=== PATIENT | female | born 1990 | race Caucasian/White ===

== ENCOUNTER 2016-06-13 13:12 | Emergency (ER) | payer SELFPAY ==
[2016-06-13 13:16] VITALS: RESP 16; TEMP 97.7
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
[2016-06-13 13:48] VITALS: BP 115/78; PULSE 80; O2SAT 97
== END 2016-06-13 13:47 | disposition home or self-care (01) ==
DX: T22.10XA Burn of first degree of shoulder and upper limb, except wrist and hand, unspecified site, initial encounter (principal); F17.200 Nicotine dependence, unspecified, uncomplicated; W01.198A Fall on same level from slipping, tripping and stumbling with subsequent striking against other object, initial encounter

== ENCOUNTER 2016-06-26 13:46 | Emergency (ER) | payer SELFPAY ==
[2016-06-26 14:22] LABS: COLOR YELLOW; LEUKOCYTE ESTERASE,URINE NEGATIVE (NEGATIVE); NITRITE,URINE NEGATIVE (NEGATIVE)
[2016-06-26 14:31] LABS: BACTERIA TRACE /hpf (NONE SEEN); MUCUS TRACE /lpf (NONE-1+)
--- NOTE | 2016-06-26 15:47 | EDPHY ---
H & P Time Seen by Provider: 06/26/16 15:47 HPI/ROS: CHIEF COMPLAINT: Right flank pain HISTORY OF PRESENT ILLNESS: This 26-year-old woman presents with right flank pain since yesterday. She says it was mild yesterday and then today says is increased and severe radiating to her right lower quadrant. It is associated with some dysuria and urinary frequency. It feels identical to previous kidney stones. She says she has had kidney stones about 6 times and had to be stented twice. She says that she recently moved from [place] and does not have a local primary care physician or urologist. REVIEW OF SYSTEMS: Eye: no change in vision ENT: no sore throat Cardiac: no chest pain or syncope Pulmonary: no cough or SOB Abdomen: no vomiting, diarrhea, abdominal pain Musculoskeletal: Right flank pain as above, no recent trauma. Skin: no rash Neuro: no headache Constitutional: no fever : HPI A comprehensive 10 point review of systems is otherwise negative aside from elements mentioned in the history of present illness. PAST MEDICAL HISTORY: Kidney stones as above. Last menstrual period 2 weeks ago. States to me no recent pain medication prescriptions. Social history: moved here from [place]. No local PCP per patient. General Appearance: Alert and conversant, cooperative. Eyes: No scleral icterus. ENT, Mouth: Normal mucous membranes. Respiratory: Normal respiratory effort, breath sounds equal, lungs are clear to auscultation. Cardiovascular: Regular rate and rhythm. Gastrointestinal: Abdomen is soft and non tender. No McBurney's point tenderness. Neurological: Alert and oriented x3. Normally conversant. Face symmetric, normal movement and sensation in all extremities. Skin: Warm and dry, no rashes. No zoster. Musculoskeletal: Mild right CVA tenderness. Psychiatric: Not agitated. Emergency Department course/MDM: Patient's urine microscopic is reviewed. 10-15 red blood cells and 1-3 white blood cells. Trace bacteria. This would be suggestive that the most likely diagnosis is renal colic on the right side, UTI unlikely. Imaging versus empiric treatment and urology follow-up discussed with the patient. My preference would be to try and avoid ionizing radiation at this time and can treat her symptoms and follow up with specialist locally. Patient states she likes this plan and is in agreement. 1700: Comfortable, pain mostly controlled, 1 oral Percocet. Discharged with urology follow-up. Pharmacy called me after she was discharged and she went to fill RX; and PDMP query was performed by myself at 2039. 06/22/16, #25 oxycodone/acet, in [place] rx by Jefe 06/10/16 #16 oxycodone, in [place], rx by Aniceto 06/19/16 #6 hydrocodone/acet, in [place], rx by Ayush 06/13/16 #7 hydrocodone/acet, Rx by Pb in [place] 06/04/16 #20 hydrocodone/acet, rx by mAna in [place] More than 1 page of controlled substance prescriptions from multiple providers in [place] in 2015. Discussed with Evelia from case management: Patient will receive a letter from us that she is not to receive any further controlled substance or opioid prescriptions unless she has a new clearly documented indication for such during her Emergency Department visit. Multiple recent prescriptions from multiple providers for controlled substances. Smoking Status: Current every day smoker Constitutional: Initial Vital Signs Temperature (C) 37.1 C 06/26/16 13:57 Heart Rate 81 06/26/16 13:57 Respiratory Rate 18 06/26/16 13:57 Blood Pressure 123/73 H 06/26/16 13:57 O2 Sat (%) 98 06/26/16 13:57 O2 Delivery Mode Room Air Allergies/Adverse Reactions: Sulfa (Sulfonamide Antibiotics) Allergy (Intermediate, Verified 06/26/16 13:56) bad sores in mouth Home Medications: Medication Instructions Recorded oxyCODONE/APAP 5/325 [Percocet] 1 - 2 tab PO Q4-6PRN PRN #11 tab 06/26/16 Medical Decision Making Differential Diagnosis: Differential diagnosis considered for flank pain including but not limited to musculoskeletal causes, kidney stone, pyelonephritis, shingles, and intra- abdominal causes such as diverticulitis and appendicitis. - Data Points Medications Given: Discontinued Medications Hydromorphone HCl (Dilaudid) 0.5 mg IVP EDNOW ONE Stop: 06/26/16 16:00 Last Admin: 06/26/16 16:16 Dose: 0.5 mg Sodium Chloride (Ns) 1,000 mls @ 0 mls/hr IV ONCE ONE PRN Reason: Wide Open Stop: 06/26/16 16:00 Last Admin: 06/26/16 16:16 Dose: 1,000 mls Sodium Chloride (Ns) 1,000 mls @ 0 mls/hr IV ONCE ONE PRN Reason: Wide Open Stop: 06/26/16 16:00 Last Admin: 06/26/16 16:17 Dose: 1,000 mls Ketorolac Tromethamine (Toradol) 30 mg IVP EDNOW ONE Stop: 06/26/16 16:00 Last Admin: 06/26/16 16:16 Dose: 30 mg Ondansetron HCl (Zofran) 4 mg IVP EDNOW ONE Stop: 06/26/16 16:00 Last Admin: 06/26/16 16:17 Dose: 4 mg Oxycodone/Acetaminophen (Percocet 5/325) 1 tab PO EDNOW ONE Stop: 06/26/16 17:03 Last Admin: 06/26/16 17:02 Dose: 1 tab Departure - Departure Disposition: Home, Routine, Self-Care Clinical Impression: Renal colic on right side Condition: Good Instructions: Renal Colic (ED) Referrals: Jame Solis MD [Medical Doctor] - 3-4 days, if not improved Prescriptions: oxyCODONE/APAP 5/325 [Percocet] 1 - 2 tab PO Q4-6PRN PRN #11 tab PRN Reason: Pain
[2016-06-26] MEDS ORDERED: NS 1,000 ML IV ONE ×2 (15:59)
[2016-06-26] MEDS ORDERED: KETOROLAC 30 MG/1 ML SDV IVP ONE (15:59)
[2016-06-26] MEDS ORDERED: ONDANSETRON 4 MG/2 ML VIAL IVP ONE (15:59)
[2016-06-26] MEDS ORDERED: HYDROmorphONE/DILAUDID 1 MG/ML SYR IVP ONE (15:59)
[2016-06-26] MEDS ORDERED: OXYCODONE/APAP 5/325 TAB ONE (16:59)
[2016-06-26] MEDS ORDERED: OXYCODONE/APAP 5/325 TAB PO ONE (17:02)
[2016-06-26 17:33] VITALS: BP 121/72; PULSE 79; RESP 16; TEMP 98.1; O2SAT 99
== END 2016-06-26 17:34 | disposition home or self-care (01) ==
DX: N23 Unspecified renal colic (principal); F17.200 Nicotine dependence, unspecified, uncomplicated
CPT/HCPCS: 96374; J1170; J1885; J2405

== ENCOUNTER 2016-07-19 13:56 | Emergency (ER) | payer SELFPAY ==
[2016-07-19 14:08] VITALS: TEMP 98.2; O2SAT 98
[2016-07-19] MEDS ORDERED: ONDANSETRON DISINTEGRATING 4 MG TAB PO ONE (14:08)
--- NOTE | 2016-07-19 14:57 | EDPHY ---
H & P Stated Complaint: RLQ pain, hx kidney stones Time Seen by Provider: 07/19/16 14:49 HPI/ROS: CHIEF COMPLAINT: Right flank and right lower abdominal pain HISTORY OF PRESENT ILLNESS: this is a 26-year-old female with a history of ureterolithiasis who presents with intermittent right flank and right lower quadrant pain. This began a few weeks ago, at which time she was seen in the emergency department (06/26/16). This morning the pain became abruptly worse. It continues to be in her right flank and right lower quadrant. She has had nausea but no vomiting. She has not been aware of fever. No diarrhea. She does report dysuria. She has not seen blood in her urine. She also describes some vaginal itching. No discharge. She is . She had gestational diabetes with her 2nd . REVIEW OF SYSTEMS: A ten point review of systems was performed and is negative with the exception of the items mentioned in the HPI. Source: Patient Exam Limitations: No limitations - Personal History LMP (Females 10-55): 8-14 Days Ago Current Tetanus/Diphtheria Vaccine: Yes Current Tetanus Diphtheria and Acellular Pertussis (TDAP): Yes - Medical/Surgical History Hx Asthma: No Hx Chronic Respiratory Disease: No Hx Diabetes: No Hx Cardiac Disease: No Hx Renal Disease: No Hx Cirrhosis: No Hx Alcoholism: No Hx HIV/AIDS: No Hx Splenectomy or Spleen Trauma: No Other PMH: kidney stones. Appendectomy. Breast reduction. Hernia repair x2. Gestational diabetes - Social History Smoking Status: Current every day smoker Additional Social History: She tells me that she has just moved here from [place]. - Physical Exam Exam: General Appearance: Alert. Vital signs reviewed. Blood pressure 138/101. Eyes: Pupils equal and round, no conjunctival injection, no discharge. Anicteric. ENT, Mouth: Mucous membranes are moist, no oropharyngeal erythema or edema. Neck: No lymphadenopathy, supple. Respiratory: Lungs are clear to auscultation; no wheezes, rales, or rhonchi. Cardiovascular: Regular rate and rhythm; no murmur, rub, or gallop. Gastrointestinal: Abdomen is soft and nontender, no masses or organomegaly, bowel sounds normal. Skin: Warm and dry, no rashes on exposed skin, normal color. Back: Nontender to palpation over the thoracolumbar spine. Mild right CVAT. Extremities: No lower extremity edema, no calf tenderness or swelling. Neurological: Alert and oriented. Moving all four extremities easily and equally. Psychiatric: Normal affect Constitutional: Initial Vital Signs Temperature (C) 36.8 C 07/19/16 14:06 Heart Rate 98 07/19/16 14:06 Respiratory Rate 15 07/19/16 14:06 Blood Pressure 138/101 H 07/19/16 14:06 O2 Sat (%) 98 07/19/16 14:06 O2 Delivery Mode Room Air Allergies/Adverse Reactions: Sulfa (Sulfonamide Antibiotics) Allergy (Intermediate, Verified 07/19/16 14:05) bad sores in mouth Home Medications: Medication Instructions Recorded NK [No Known Home Meds] 07/19/16 Medical Decision Making ED Course/Re-evaluation: 26-year-old female with history of kidney stones who presents with pain in the right flank and right lower quadrant, consistent with ureterolithiasis. She is being given IV Dilaudid and Zofran while blood work and urinalysis are pending. She has had [address] scans in her life. Review of her records reveals that she was flagged for possible drug seeking behavior after her visit on 06/26/16. An RX for Percocet was given prompting the pharmacy to call with the report that she had been receiving opiate prescriptions from various providers during the month of May. Apparently our efforts to contact her about this were unsuccessful. I have reviewed PDMP and see RX for opiates on 06/13, 06/19, 06/26, and 06/29. I also see prescriptions for opiates in 2016 during every month of that year except for March and May. The prescriptions are written by different providers in different cities. I confronted her with this information and she made no explanation whatsoever. I think that she has exhibited drug seeking behavior. I explained that she will not receive additional opiates today and will not be given a prescription. I recommended establishing care with PCP and an appointment was arranged at [facility]. She also has been referred to urology for the second time. I have reviewed her bloodwork and UA. I do not feel that additional ED evaluation or treatment is needed at this time. I do not know if she has ureterolithiasis or not. She is not ill appearing. She does not have fever. I do not suspect UTI/pyelo. She is not . Differential Diagnosis: Flank pain including but not limited to musculoskeletal causes, kidney stone, pyelonephritis, shingles, and intra-abdominal causes such as diverticulitis and appendicitis. - Data Points Laboratory Results: Laboratory Results 07/19/16 14:52 07/19/16 14:52 Medications Given: Discontinued Medications Hydromorphone HCl (Dilaudid) 1 mg IVP EDNOW ONE Stop: 07/19/16 14:59 Last Admin: 07/19/16 15:03 Dose: 1 mg Sodium Chloride (Ns) 1,000 mls @ 0 mls/hr IV ONCE ONE PRN Reason: Wide Open Stop: 07/19/16 14:59 Last Admin: 07/19/16 15:03 Dose: 1,000 mls Ondansetron HCl (Zofran Odt) 4 mg PO EDNOW ONE Stop: 07/19/16 14:09 Last Admin: 07/19/16 14:10 Dose: 4 mg Ondansetron HCl (Zofran) 4 mg IVP EDNOW ONE Stop: 07/19/16 14:59 Last Admin: 07/19/16 15:03 Dose: 4 mg Departure - Departure Disposition: Home, Routine, Self-Care Clinical Impression: Abdominal pain Condition: Good Instructions: Kidney Stones (ED), Abdominal Pain (ED) Additional Instructions: Adult Pain & Fever Control: We recommend Ibuprofen (Motrin,Advil) for pain control. Take Ibuprofen when pain is severe. Your dose is: Ibuprofen 600mg every 6 hours with food Followup with [facility] on Tuesday07/23/16 at 10:00 a.m. (arrive at 9:45 a.m). [facility] is located at [address] [place] [address]. Their phone number is [phone] if you need to cancel or reschedule. Schedule with Dr. Solis, urologist, for further evaluation. If you have any issues with getting a follow up appointment with the urologist, please feel free to call ED Case Management at [phone] You have been given a letter from our ED Case Management explaining that you will no longer be able to receive opiate prescriptions from [facility]. Referrals: [facility],. [Clinic] - As per Instructions Jame Solis MD [Medical Doctor] - As per Instructions Report Scribed for: Brionna Bradley Report Scribed by: Jessie Richter Date of Report: 07/19/16 Time of Report: 16:32 Physician Review and Approval Statement: 07/20/16 10:09 Portions of this chart were entered by a medical records custodian. I personally performed the HPI, PE, and MDM. I have reviewed the chart and agree with its contents.
[2016-07-19] MEDS ORDERED: NS 1,000 ML IV ONE (14:58)
[2016-07-19] MEDS ORDERED: HYDROmorphONE/DILAUDID 1 MG/ML SYR IVP ONE (14:58)
[2016-07-19] MEDS ORDERED: HYDROmorphONE/DILAUDID 1 MG/ML SYR ONE (14:58)
[2016-07-19] MEDS ORDERED: ONDANSETRON 4 MG/2 ML VIAL IVP ONE (14:58)
[2016-07-19] MEDS ORDERED: ONDANSETRON 4 MG/2 ML VIAL ONE (14:58)
[2016-07-19 15:07] LABS: % IMMATURE GRANULYOCYTES 0.3 % (0.0-1.1); ABSOLUTE IMMATURE GRANULOCYTES 0.03 10^3/uL (0.00-0.10); ADD DIFF? NO; ADD MORPH? NO; ADD SCAN? NO; ATYPICAL LYMPHOCYTE FLAG 10 (0-99); FRAGMENT RBC FLAG 0 (0-99); HEMATOCRIT 42.6 % (38.0-47.0); HEMOGLOBIN 14.7 g/dL (12.6-16.3); LEFT SHIFT FLG 0 (0-99); LIPEMIA HEMOLYSIS FLAG 90 (0-99); MEAN CELL HEMOGLOBIN 30.9 pg (27.9-34.1); MEAN CELL HEMOGLOBIN CONCENTR. 34.5 g/dL (32.4-36.7); MEAN CELL VOLUME 89.5 fL (81.5-99.8); MEAN PLATELET VOLUME 8.7 fL (8.7-11.7); PLATELET CLUMPS FLAG 0 (0-99); PLATELET COUNT 300 10^3/uL (150-400); RED BLOOD CELL COUNT 4.76 10^6/uL (4.18-5.33); RED CELL DISTRIBUTION WIDTH 12.1 % (11.5-15.2)
[2016-07-19 15:08] LABS: COLOR YELLOW; LEUKOCYTE ESTERASE,URINE NEGATIVE (NEGATIVE); NITRITE,URINE NEGATIVE (NEGATIVE)
[2016-07-19 15:16] LABS: BACTERIA TRACE /hpf (NONE SEEN); MUCUS TRACE /lpf (NONE-1+); RBC,URINE 25-50 /hpf (0-3)
[2016-07-19 15:24] LABS: ANION GAP 12 mEq/L (8-16); CALCIUM 10.1 mg/dL (8.5-10.4); CARBON DIOXIDE 23 mEq/l (22-31); CHLORIDE 103 mEq/L (97-110); CREATININE 0.6 mg/dL (0.6-1.0); GLOMERULAR FILTRATION RATE > 60; GLUCOSE 81 mg/dL (70-100); POTASSIUM 3.8 mEq/L (3.5-5.2); SODIUM 138 mEq/L (134-144)
[2016-07-19 17:02] VITALS: BP 134/93; PULSE 100; RESP 16
== END 2016-07-19 17:00 | disposition home or self-care (01) ==
DX: R10.9 Unspecified abdominal pain (principal); F17.200 Nicotine dependence, unspecified, uncomplicated; Z90.49 Acquired absence of other specified parts of digestive tract
CPT/HCPCS: 96374; J1170; J2405